=== PATIENT | male | born 1945 | race Caucasian/White ===

== ENCOUNTER → 2018-08-11 | Outpatient (CLI) | payer OTHER, MEDICARE ==
[~2018-08-11] MED LIST: ALTACE10 M1 PO; BENICAR40 MG PO; BYSTOLIC10 MG PO; COUMADIN 10MG T10 M1 PO; COUMADIN 2 MG TA2 M1 PO; CRESTOR10 MG PO; ENOXAPARIN150 MG/1 M SUBQ; JANUVIA100 MG PO; LEVEMIR FLEX PEN SUBQ; NOVOLOG FLEX PEN SUBQ; NOVOLOG100 UNIT/1 SUBQ; PRADAXA150 MG PO
== END ==
LOC: RAD 16:17
DX: M51.36 Other intervertebral disc degeneration, lumbar region (principal); M12.88 Other specific arthropathies, not elsewhere classified, other specified site